=== PATIENT | female | born 2005 | race Caucasian/White ===

== ENCOUNTER 2023-09-23 13:38 | Emergency (ER) | payer OTHER ==
[2023-09-23 13:52] VITALS: BP 127/79; PULSE 77; RESP 18; TEMP 99; BMI 29.2
[2023-09-23] MEDS ORDERED: SODIUM CHLORIDE 0.9% 500 ML INFUS.BAG IV ONE (15:09)
[2023-09-23 15:47] LABS: URINE APPEARANCE CLEAR; URINE BILIRUBIN NEGATIVE (NEGATIVE); URINE COLOR YELLOW; URINE GLUCOSE (UA) NEGATIVE (NEGATIVE); URINE KETONE TRACE (NEGATIVE); URINE LEUK ESTERASE NEGATIVE (NEGATIVE); URINE NITRITE NEGATIVE (NEGATIVE); URINE PROTEIN NEGATIVE (NEGATIVE); URINE UROBILINOGEN 0.2 mg/dL (0.2-1.0)
[2023-09-23 15:48] LABS: BASO % 0.4 % (0-2.0); EOS % 1.9 % (0-4.5); HEMATOCRIT 40.9 % (32.4-45.2); HEMOGLOBIN 13.2 GM/dL (10.7-15.3); LYMPH % 32.1 % (8-40); MCH 27.8 pg (25.7-33.7); MCHC 32.4 g/dl (32.0-36.0); MEAN CELL VOLUME 85.7 fl (80-96); MEAN PLT VOLUME 8.1 fl (7.5-11.1); MONO % 7.4 % (3.8-10.2); NEUT % 58.2 % (42.8-82.8); PLATELET COUNT 303 10^3/uL (134-434); RBC 4.77 M/mm3 (3.60-5.2); RDW 12.7 % (11.6-15.6); WHITE BLOOD COUNT 7.7 K/mm3 (4.0-10.0)
[2023-09-23 16:01] LABS: CHLORIDE 107 mmol/L (98-107); SODIUM 140 mmol/L (136-145)
[2023-09-23 16:03] LABS: CALCIUM 8.7 mg/dL (8.5-10.1)
[2023-09-23 16:04] LABS: ALBUMIN 3.9 g/dl (3.4-5.0); ANION GAP 6 mmol/L (4-13); BLOOD UREA NITROGEN 6.4 mg/dL (7-18); CO2 27 mmol/L (21-32); GLUCOSE,RANDOM 80 mg/dL (74-106)
[2023-09-23 16:05] LABS: EPI CELLS 28 /uL (0-25.1); HYALINE CASTS 0 /uL (0-3.1); URINE BACTERIA 368 /uL (0-1359); URINE RBC 8 /uL (0-23.9); URINE WBC 10 /uL (0-25.8)
[2023-09-23 16:08] LABS: HCG,QUALITATIVE URINE NEGATIVE
[2023-09-23 16:08] LABS: BILIRUBIN,TOTAL 0.3 mg/dL (0.2-1); CREATININE 0.7 mg/dL (0.55-1.3); SGOT/AST 32 U/L (15-37); SGPT/ALT 38 U/L (13-61); TOT PROT 7.8 g/dl (6.4-8.2)
[2023-09-23 16:09] LABS: ALK PHOS 90 U/L (45-117)
== END 2023-09-23 20:15 | disposition home or self-care (01) ==
LOC: JER 13:38
DX: M54.50 Low back pain, unspecified (principal); R10.11 Right upper quadrant pain; R10.12 Left upper quadrant pain; Z20.822 Contact with and (suspected) exposure to COVID-19
CPT/HCPCS: 0241U-QW; 36415; 74177-TC; 80053; 81003; 84702; 84703; 85025; 87086; 93005; 93010; 99285-25; Q9967

== ENCOUNTER 2024-01-13 04:10 | Emergency (ER) | payer OTHER ==
[2024-01-13 04:20] VITALS: BMI 29.2
[2024-01-13 04:26] VITALS: TEMP 97.8
[2024-01-13 05:03] LABS: PH,URINE 6.5 (5.0-8.0); URINE APPEARANCE CLEAR; URINE BILIRUBIN NEGATIVE (NEGATIVE); URINE COLOR YELLOW; URINE GLUCOSE (UA) NEGATIVE (NEGATIVE); URINE KETONE NEGATIVE (NEGATIVE); URINE LEUK ESTERASE NEGATIVE (NEGATIVE); URINE NITRITE NEGATIVE (NEGATIVE); URINE PROTEIN NEGATIVE (NEGATIVE)
[2024-01-13] MEDS ORDERED: ACETAMINOPHEN 325 MG TABLET (FP) ONE (05:22)
[2024-01-13] MEDS: ACETAMINOPHEN 500 MG TABLET (FP) PO ONE (05:27)
[2024-01-13 05:41] LABS: HCG,QUALITATIVE URINE Positive
[2024-01-13] MEDS: SODIUM CHLORIDE 0.9% 500 ML INFUS.BAG IV ONE (06:17)
[2024-01-13 06:33] LABS: BASO % 0.4 % (0-2.0); EOS % 2.7 % (0-4.5); HEMATOCRIT 36.3 % (32.4-45.2); HEMOGLOBIN 12.5 GM/dL (10.7-15.3); MCH 28.7 pg (25.7-33.7); MCHC 34.5 g/dl (32.0-36.0); MEAN CELL VOLUME 83.2 fl (80-96); MEAN PLT VOLUME 7.8 fl (7.5-11.1); MONO % 8.5 % (3.8-10.2); NEUT % 63.4 % (42.8-82.8); PLATELET COUNT 310 10^3/uL (134-434); RBC 4.37 M/mm3 (3.60-5.2); RDW 13.1 % (11.6-15.6); WHITE BLOOD COUNT 6.5 K/mm3 (4.0-10.0)
[2024-01-13 07:05] LABS: POTASSIUM 3.7 mmol/L (3.5-5.1)
[2024-01-13 07:07] LABS: CALCIUM 8.6 mg/dL (8.5-10.1)
[2024-01-13 07:08] LABS: ALBUMIN 3.5 g/dl (3.4-5.0); BLOOD UREA NITROGEN 7.6 mg/dL (7-18)
[2024-01-13 07:11] LABS: CREATININE 0.6 mg/dL (0.55-1.3)
[2024-01-13 07:12] LABS: BILIRUBIN,TOTAL 0.4 mg/dL (0.2-1); TOT PROT 6.9 g/dl (6.4-8.2)
[2024-01-13 11:10] VITALS: BP 104/58; PULSE 83; RESP 18
== END 2024-01-13 14:24 | disposition home or self-care (01) ==
LOC: JER 04:10
DX: O26.891 Other specified pregnancy related conditions, first trimester (principal); R10.30 Lower abdominal pain, unspecified; Z3A.01 Less than 8 weeks gestation of pregnancy
CPT/HCPCS: 36415; 76817-TC; 80053; 81003; 83690; 84702; 84703; 85025; 86850; 86900; 86901; 87086; 99284-25

== ENCOUNTER 2024-01-23 11:39 | Emergency (ER) | payer OTHER ==
[2024-01-23 11:45] VITALS: TEMP 97.6; BMI 27.7
[2024-01-23] MEDS ORDERED: METOCLOPRAMIDE HCL INJECTION 10 MG/2 ML VIAL ONE (12:30)
[2024-01-23] MEDS ORDERED: ACETAMINOPHEN INJECTION 100 ML IVPB ONE (12:30)
[2024-01-23 12:34] LABS: BASO % 0.4 % (0-2.0); EOS % 0.6 % (0-4.5); HEMATOCRIT 38.6 % (32.4-45.2); HEMOGLOBIN 13.1 GM/dL (10.7-15.3); LYMPH % 21.3 % (8-40); MCH 28.6 pg (25.7-33.7); MONO % 6.7 % (3.8-10.2); PLATELET COUNT 298 10^3/uL (134-434); RDW 13.3 % (11.6-15.6); WHITE BLOOD COUNT 6.2 K/mm3 (4.0-10.0)
[2024-01-23 12:35] LABS: HCG,QUALITATIVE URINE Positive
[2024-01-23 12:38] LABS: EPI CELLS >36 /uL (0-25.1); HYALINE CASTS 7 /uL (0-3.1); URINE APPEARANCE TURBID; URINE BACTERIA 4672 /uL (0-1359); URINE BILIRUBIN 1+ (NEGATIVE); URINE COLOR DK YELLOW; URINE GLUCOSE (UA) NEGATIVE (NEGATIVE); URINE KETONE 1+ (NEGATIVE); URINE LEUK ESTERASE 1+ (NEGATIVE); URINE NITRITE NEGATIVE (NEGATIVE); URINE PROTEIN 1+ (NEGATIVE); URINE RBC 17 /uL (0-23.9); URINE WBC 100 /uL (0-25.8)
[2024-01-23 12:41] LABS: INR 1.16 (0.83-1.09); PROTHROMBIN TIME (PATIENT) 13.1 SEC (9.7-13.0)
[2024-01-23 12:44] LABS: ACTIVATED PTT 34.4 SECONDS (25.2-36.5)
[2024-01-23] MEDS: METOCLOPRAMIDE HCL INJECTION 10 MG/2 ML VIAL IVPUSH ONE (12:46)
[2024-01-23] MEDS: LACTATED RINGERS SOLUTION 1000 ML INFUS.BAG IV ONE (12:46)
[2024-01-23 12:51] LABS: POTASSIUM 4.1 mmol/L (3.5-5.1)
[2024-01-23 12:53] LABS: CALCIUM 9.3 mg/dL (8.5-10.1)
[2024-01-23 12:54] LABS: BLOOD UREA NITROGEN 7.8 mg/dL (7-18); MAGNESIUM 2.2 mg/dL (1.8-2.4)
[2024-01-23 12:57] LABS: CREATININE 0.6 mg/dL (0.55-1.3)
[2024-01-23 12:58] LABS: BILIRUBIN,TOTAL 0.6 mg/dL (0.2-1)
[2024-01-23 12:59] LABS: TOT PROT 7.9 g/dl (6.4-8.2)
[2024-01-23] MEDS: ACETAMINOPHEN 1000 MG/100 ML BAG IVPB ONE (13:05)
[2024-01-23] MEDS ORDERED: ONDANSETRON 4 MG/2 ML VIAL IVPUSH ONE (14:17)
[2024-01-23] MEDS ORDERED: ONDANSETRON 4 MG/2 ML VIAL ONE (14:26)
[2024-01-23] MEDS ORDERED: CEPHALEXIN MONOHYDRATE 500 MG CAPSULE (UD) PO ONE (14:38)
[2024-01-23 16:07] VITALS: BP 110/62; PULSE 66; RESP 18
== END 2024-01-23 16:07 | disposition home or self-care (01) ==
LOC: JER 11:39
PROC: 3E033NZ Introduction of Analgesics, Hypnotics, Sedatives into Peripheral Vein, Percutaneous Approach (ICD-10-PCS; principal; 2024-01-23)
PROC: 3E033GC Introduction of Other Therapeutic Substance into Peripheral Vein, Percutaneous Approach (ICD-10-PCS; 2024-01-23)
DX: O23.91 Unspecified genitourinary tract infection in pregnancy, first trimester (principal); O21.9 Vomiting of pregnancy, unspecified; Z3A.01 Less than 8 weeks gestation of pregnancy; Z20.822 Contact with and (suspected) exposure to COVID-19
CPT/HCPCS: 0241U-QW; 36415; 76817-TC; 80053; 81003; 83735; 84702; 84703; 85025; 85610; 85730; 87086; 93005; 93010; 99285-25; J0131

== ENCOUNTER 2024-02-02 14:28 | Emergency (ER) | payer OTHER ==
[2024-02-02 14:43] VITALS: BP 130/78; RESP 16; BMI 37.1
[2024-02-02] MEDS ORDERED: ONDANSETRON 4 MG/2 ML VIAL ONE (15:34)
[2024-02-02] MEDS: SODIUM CHLORIDE 0.9% 500 ML INFUS.BAG IV ONE (15:44)
[2024-02-02] MEDS: ONDANSETRON 4 MG/2 ML VIAL IVPUSH ONE (15:44)
[2024-02-02] MEDS ORDERED: FAMOTIDINE 20 MG/50 ML IVPB 20 MG/50 ML MG IVPB ONE (15:56)
[2024-02-02 16:04] LABS: BASO % 0.4 % (0-2.0); HEMATOCRIT 39.9 % (32.4-45.2); HEMOGLOBIN 14.1 GM/dL (10.7-15.3); LYMPH % 19.8 % (8-40); MCH 29.5 pg (25.7-33.7); MCHC 35.3 g/dl (32.0-36.0); MEAN CELL VOLUME 83.6 fl (80-96); MEAN PLT VOLUME 9.4 fl (7.5-11.1); MONO % 7.1 % (3.8-10.2); NEUT % 71.7 % (42.8-82.8); PLATELET COUNT 287 10^3/uL (134-434); RBC 4.77 M/mm3 (3.60-5.2); RDW 13.4 % (11.6-15.6); WHITE BLOOD COUNT 7.3 K/mm3 (4.0-10.0)
[2024-02-02] MEDS: FAMOTIDINE 20 MG/50 ML IVPB 20 MG/50 ML MG IVPB ONE (16:04)
[2024-02-02 16:32] LABS: POTASSIUM 4.4 mmol/L (3.5-5.1)
[2024-02-02 16:34] LABS: BLOOD UREA NITROGEN 8.5 mg/dL (7-18); CALCIUM 9.7 mg/dL (8.5-10.1)
[2024-02-02 16:38] LABS: CREATININE 0.6 mg/dL (0.55-1.3)
[2024-02-02] MEDS ORDERED: METOCLOPRAMIDE HCL INJECTION 10 MG/2 ML VIAL ONE (17:51)
[2024-02-02] MEDS: METOCLOPRAMIDE HCL INJECTION 10 MG/2 ML VIAL IVPUSH ONE (18:03)
[2024-02-02] MEDS: DEXTROSE 5%-NORMAL SALINE 1,000 ML IV ONE (18:36)
[2024-02-02 20:04] LABS: PH,URINE 6.5 (5.0-8.0); URINE APPEARANCE CLEAR; URINE BILIRUBIN NEGATIVE (NEGATIVE); URINE COLOR DK YELLOW; URINE GLUCOSE (UA) 3+ (NEGATIVE); URINE KETONE 3+ (NEGATIVE); URINE LEUK ESTERASE NEGATIVE (NEGATIVE); URINE NITRITE NEGATIVE (NEGATIVE); URINE PROTEIN NEGATIVE (NEGATIVE)
[2024-02-02 20:05] VITALS: PULSE 81; TEMP 98.3
== END 2024-02-02 23:57 | disposition home or self-care (01) ==
LOC: JER 14:28
PROC: 3E033GC Introduction of Other Therapeutic Substance into Peripheral Vein, Percutaneous Approach (ICD-10-PCS; principal; 2024-02-02)
PROC: 3E033GC Introduction of Other Therapeutic Substance into Peripheral Vein, Percutaneous Approach (ICD-10-PCS; 2024-02-02)
PROC: 3E033GC Introduction of Other Therapeutic Substance into Peripheral Vein, Percutaneous Approach (ICD-10-PCS; 2024-02-02)
PROC: 3E0337Z Introduction of Electrolytic and Water Balance Substance into Peripheral Vein, Percutaneous Approach (ICD-10-PCS; 2024-02-02)
DX: O21.1 Hyperemesis gravidarum with metabolic disturbance (principal); O99.891 Other specified diseases and conditions complicating pregnancy; R19.7 Diarrhea, unspecified; Z3A.01 Less than 8 weeks gestation of pregnancy
CPT/HCPCS: 36415; 76815; 80053; 81003; 83690; 84702; 85025; 86850; 86900; 86901; 87086; 99284-25

== ENCOUNTER 2024-02-15 17:41 | Emergency (ER) | payer OTHER ==
[2024-02-15 17:45] VITALS: RESP 18; BMI 26.6
[2024-02-15] MEDS ORDERED: FAMOTIDINE 20 MG/50 ML IVPB 20 MG/50 ML MG IVPB ONE ×2 (18:11→18:28)
[2024-02-15] MEDS ORDERED: ONDANSETRON 4 MG/2 ML VIAL ONE ×2 (18:11→18:28)
[2024-02-15] MEDS ORDERED: ACETAMINOPHEN INJECTION 100 ML IVPB ONE ×2 (18:11→18:28)
[2024-02-15] MEDS: ACETAMINOPHEN 1000 MG/100 ML BAG IVPB ONE (18:15)
[2024-02-15] MEDS: ONDANSETRON 4 MG/2 ML VIAL IVPUSH ONE (18:15)
[2024-02-15] MEDS: FAMOTIDINE 20 MG/50 ML IVPB 20 MG/50 ML MG IVPB ONE (18:15)
[2024-02-15] MEDS: LACTATED RINGERS SOLUTION 1000 ML INFUS.BAG IV ONE (18:15)
[2024-02-15 18:42] LABS: BASO % 0.5 % (0-2.0); EOS % 0.5 % (0-4.5); HEMATOCRIT 39.7 % (32.4-45.2); HEMOGLOBIN 13.6 GM/dL (10.7-15.3); MCH 28.5 pg (25.7-33.7); MCHC 34.4 g/dl (32.0-36.0); MEAN CELL VOLUME 83.1 fl (80-96); MEAN PLT VOLUME 9.7 fl (7.5-11.1); MONO % 6.9 % (3.8-10.2); NEUT % 74.1 % (42.8-82.8); PLATELET COUNT 278 10^3/uL (134-434); RBC 4.77 M/mm3 (3.60-5.2); RDW 13.4 % (11.6-15.6); WHITE BLOOD COUNT 7.5 K/mm3 (4.0-10.0)
[2024-02-15 18:47] LABS: INR 1.13 (0.83-1.09); PROTHROMBIN TIME (PATIENT) 12.9 SEC (9.7-13.0)
[2024-02-15 18:49] LABS: ACTIVATED PTT 30.7 SECONDS (25.2-36.5)
[2024-02-15 19:01] LABS: POTASSIUM 4.2 mmol/L (3.5-5.1)
[2024-02-15 19:04] LABS: ALBUMIN 3.9 g/dl (3.4-5.0); BLOOD UREA NITROGEN 6.2 mg/dL (7-18); CALCIUM 9.6 mg/dL (8.5-10.1); MAGNESIUM 2.1 mg/dL (1.8-2.4)
[2024-02-15 19:07] LABS: CREATININE 0.6 mg/dL (0.55-1.3)
[2024-02-15 19:09] LABS: BILIRUBIN,TOTAL 1.3 mg/dL (0.2-1); TOT PROT 7.8 g/dl (6.4-8.2)
[2024-02-15 22:54] LABS: URINE APPEARANCE TURBID; URINE BILIRUBIN 1+ (NEGATIVE); URINE COLOR DK YELLOW; URINE GLUCOSE (UA) NEGATIVE (NEGATIVE); URINE KETONE 4+ (NEGATIVE); URINE LEUK ESTERASE NEGATIVE (NEGATIVE); URINE NITRITE NEGATIVE (NEGATIVE); URINE PROTEIN TRACE (NEGATIVE)
[2024-02-15 23:34] VITALS: BP 100/58; PULSE 94; TEMP 98.4
[2024-02-16] MEDS ORDERED: ONDANSETRON 4 MG/2 ML VIAL ONE (00:42)
[2024-02-16] MEDS: ONDANSETRON 4 MG/2 ML VIAL IVPB ONE (00:50)
== END 2024-02-16 01:48 | disposition home or self-care (01) ==
LOC: JER 17:41
PROC: 3E033GC Introduction of Other Therapeutic Substance into Peripheral Vein, Percutaneous Approach (ICD-10-PCS; principal; 2024-02-15)
PROC: 3E033GC Introduction of Other Therapeutic Substance into Peripheral Vein, Percutaneous Approach (ICD-10-PCS; 2024-02-15)
PROC: 3E033GC Introduction of Other Therapeutic Substance into Peripheral Vein, Percutaneous Approach (ICD-10-PCS; 2024-02-15)
PROC: 3E033GC Introduction of Other Therapeutic Substance into Peripheral Vein, Percutaneous Approach (ICD-10-PCS; 2024-02-15)
DX: O21.0 Mild hyperemesis gravidarum (principal); Z3A.09 9 weeks gestation of pregnancy
CPT/HCPCS: 36415; 76705-TC; 76817-TC; 80053; 81003; 83690; 83735; 84702; 85025; 85610; 85730; 87086; 99284-25; J0131

== ENCOUNTER 2024-03-06 11:20 | Emergency (ER) | payer OTHER ==
[2024-03-06 11:30] VITALS: BMI 30.7
[2024-03-06] MEDS ORDERED: ONDANSETRON 4 MG/2 ML VIAL ONE (12:54)
[2024-03-06] MEDS: ONDANSETRON 4 MG/2 ML VIAL IVPUSH ONE (13:00)
[2024-03-06] MEDS: SODIUM CHLORIDE 1,000 ML IV STA (13:00)
[2024-03-06 13:07] LABS: BASO % 0.4 % (0-2.0); HEMATOCRIT 41.2 % (32.4-45.2); HEMOGLOBIN 14.3 GM/dL (10.7-15.3); LYMPH % 22.2 % (8-40); MCH 28.7 pg (25.7-33.7); MCHC 34.6 g/dl (32.0-36.0); MEAN PLT VOLUME 8.5 fl (7.5-11.1); MONO % 7.2 % (3.8-10.2); NEUT % 69.2 % (42.8-82.8); PLATELET COUNT 296 10^3/uL (134-434); RBC 4.97 M/mm3 (3.60-5.2); RDW 13.6 % (11.6-15.6); WHITE BLOOD COUNT 5.8 K/mm3 (4.0-10.0)
[2024-03-06 13:10] LABS: EPI CELLS 32 /uL (0-25.1); HYALINE CASTS 2 /uL (0-3.1); URINE APPEARANCE CLEAR; URINE BILIRUBIN 2+ (NEGATIVE); URINE COLOR DK YELLOW; URINE GLUCOSE (UA) NEGATIVE (NEGATIVE); URINE KETONE 4+ (NEGATIVE); URINE LEUK ESTERASE TRACE (NEGATIVE); URINE NITRITE POSITIVE (NEGATIVE); URINE PROTEIN 1+ (NEGATIVE); URINE WBC 14 /uL (0-25.8)
[2024-03-06 13:13] LABS: URINE BACTERIA 763.7 /uL (0-1359); URINE RBC 18.2 /uL (0-23.9)
[2024-03-06 13:16] LABS: INR 1.11 (0.83-1.09); PROTHROMBIN TIME (PATIENT) 12.5 SEC (9.7-13.0)
[2024-03-06 13:18] LABS: ACTIVATED PTT 31.2 SECONDS (25.2-36.5)
[2024-03-06 13:32] LABS: POTASSIUM 4.8 mmol/L (3.5-5.1)
[2024-03-06 13:34] LABS: CALCIUM 9.8 mg/dL (8.5-10.1)
[2024-03-06 13:35] LABS: ALBUMIN 3.8 g/dl (3.4-5.0); BLOOD UREA NITROGEN 5.8 mg/dL (7-18); MAGNESIUM 2.1 mg/dL (1.8-2.4)
[2024-03-06 13:37] LABS: PHOSPHOROUS 3.8 mg/dL (2.5-4.9)
[2024-03-06 13:38] LABS: CREATININE 0.6 mg/dL (0.55-1.3)
[2024-03-06 13:39] LABS: BILIRUBIN,TOTAL 0.9 mg/dL (0.2-1); TOT PROT 8.1 g/dl (6.4-8.2)
[2024-03-06] MEDS ORDERED: CEFTRIAXONE 1 GM/50 ML BAG ONE (13:44)
[2024-03-06] MEDS: CEFTRIAXONE 1 GM in DEXTROSE 5%-WATER - 100 ML IVPB ONE (13:49)
[2024-03-06 14:55] VITALS: BP 114/62; PULSE 72; RESP 19; TEMP 97.8
== END 2024-03-06 15:54 | disposition home or self-care (01) ==
LOC: JER 11:20
PROC: 3E033NZ Introduction of Analgesics, Hypnotics, Sedatives into Peripheral Vein, Percutaneous Approach (ICD-10-PCS; principal; 2024-03-06)
PROC: 3E033GC Introduction of Other Therapeutic Substance into Peripheral Vein, Percutaneous Approach (ICD-10-PCS; 2024-03-06)
PROC: 3E0337Z Introduction of Electrolytic and Water Balance Substance into Peripheral Vein, Percutaneous Approach (ICD-10-PCS; 2024-03-06)
DX: O23.11 Infections of bladder in pregnancy, first trimester (principal); N30.00 Acute cystitis without hematuria; O23.41 Unspecified infection of urinary tract in pregnancy, first trimester; O21.9 Vomiting of pregnancy, unspecified; O26.891 Other specified pregnancy related conditions, first trimester; R10.2 Pelvic and perineal pain; O99.891 Other specified diseases and conditions complicating pregnancy; R51.9 Headache, unspecified; R53.1 Weakness; R00.0 Tachycardia, unspecified; Z3A.12 12 weeks gestation of pregnancy; Z20.822 Contact with and (suspected) exposure to COVID-19
CPT/HCPCS: 0241U-QW; 36415; 76801-TC; 80053; 81003; 83735; 84100; 84702; 85025; 85610; 85730; 86850; 86900; 86901; 87086; 99284-25

== ENCOUNTER 2024-08-29 17:25 | Inpatient (IN) | payer OTHER ==
[2024-08-29 18:27] VITALS: BMI 36.8
[2024-08-29] MEDS: ELECTROLYTE-148 SOLN 1,000 ML IV SCH (18:30)
[2024-08-29 19:37] LABS: BASO % 0.2 % (0-2.0); EOS % 0.5 % (0-4.5); HEMATOCRIT 34.4 % (32.4-45.2); HEMOGLOBIN 11.3 GM/dL (10.7-15.3); LYMPH % 16.4 % (8-40); MCH 26.6 pg (25.7-33.7); MCHC 32.7 g/dl (32.0-36.0); MEAN CELL VOLUME 81.3 fl (80-96); MEAN PLT VOLUME 7.9 fl (7.5-11.1); MONO % 6.4 % (3.8-10.2); NEUT % 76.5 % (42.8-82.8); PLATELET COUNT 368 10^3/uL (134-434); RBC 4.23 M/mm3 (3.60-5.2); RDW 14.3 % (11.6-15.6); WHITE BLOOD COUNT 7.7 K/mm3 (4.0-10.0)
[2024-08-29 19:51] LABS: INR 0.93 (0.83-1.09); PROTHROMBIN TIME (PATIENT) 10.5 SEC (9.7-13.0)
[2024-08-29 19:53] LABS: ACTIVATED PTT 29.4 SECONDS (25.2-36.5)
[2024-08-29 20:08] LABS: POTASSIUM 4.1 mmol/L (3.5-5.1)
[2024-08-29 20:09] LABS: BLOOD UREA NITROGEN 7.2 mg/dL (7-18); CALCIUM 8.7 mg/dL (8.5-10.1)
[2024-08-29] MEDS: DINOPROSTONE 10 MG VAGINAL SUPPOSITORY VG STA (20:12)
[2024-08-29 20:13] LABS: CREATININE 0.4 mg/dL (0.55-1.3)
[2024-08-30] MEDS ORDERED: PROMETHAZINE HCL 25 MG/1 ML VIAL ONE (02:43)
[2024-08-30] MEDS ORDERED: BUTORPHANOL TARTRATE 1 MG/ML VIAL ONE (02:43)
[2024-08-30] MEDS: BUTORPHANOL TARTRATE 1 MG/ML VIAL IVPB ONE (02:57)
[2024-08-30] MEDS: PROMETHAZINE HCL 25 MG/1 ML VIAL IVPB ONE (02:57)
[2024-08-30] MEDS ORDERED: OXYTOCIN 20 UNITS in 0.9% NS 20 UNIT/1,000 ML INFUS.BAG IV ONE (05:13)
[2024-08-30] MEDS ORDERED: LIDOCAINE HCL 1% PRESERVATIVE FREE - 30ML VIAL ONE (05:14)
[2024-08-30] MEDS: OXYTOCIN 20 UNITS in 0.9% NS 20 UNIT/1,000 ML INFUS.BAG IV SCH (05:42)
[2024-08-30] MEDS ORDERED: BENZOCAINE 20% 57 GM BOTTLE TP PRN (05:55)
[2024-08-30] MEDS ORDERED: BENZOCAINE 28 GM HEMORRHOIDAL OINTMENT TP PRN (05:55)
[2024-08-30] MEDS ORDERED: WITCH HAZEL 50% (TUCKS) 40 PAD/JAR PAD TP PRN (05:55)
[2024-08-30] MEDS ORDERED: BISACODYL 10 MG SUPP.RECT RC PRN (05:55)
[2024-08-30] MEDS ORDERED: IBUPROFEN 600 MG TABLET (FP) PO ONE (06:23)
[2024-08-30] MEDS: IBUPROFEN 600 MG TABLET (FP) PO PRN (06:25)
[2024-08-30] MEDS: ACETAMINOPHEN 325 MG TABLET (FP) PO PRN (09:24)
[2024-08-31 07:59] LABS: BASO % 0.4 % (0-2.0); EOS % 0.6 % (0-4.5); HEMATOCRIT 31.9 % (32.4-45.2); HEMOGLOBIN 10.5 GM/dL (10.7-15.3); MCH 27.1 pg (25.7-33.7); MCHC 32.9 g/dl (32.0-36.0); MEAN CELL VOLUME 82.4 fl (80-96); MEAN PLT VOLUME 7.8 fl (7.5-11.1); MONO % 7.4 % (3.8-10.2); NEUT % 73.6 % (42.8-82.8); PLATELET COUNT 301 10^3/uL (134-434); RBC 3.88 M/mm3 (3.60-5.2); RDW 14.3 % (11.6-15.6)
[2024-08-31 21:38] VITALS: RESP 18
[2024-09-01 10:44] VITALS: BP 116/70; PULSE 85; TEMP 97.8
== END 2024-09-01 15:25 | disposition home or self-care (01) | DRG 560 ==
LOC: JDEL 17:25 → JLDR 17:41 → J3W 08-30 08:15
PROVIDERS: ADMIT Student in an Organized Health Care Education/Training Program; ATTEND Student in an Organized Health Care Education/Training Program
PROC: 3E0P7VZ Introduction of Hormone into Female Reproductive, Via Natural or Artificial Opening (ICD-10-PCS; 2024-08-29)
PROC: 10E0XZZ Delivery of Products of Conception, External Approach (ICD-10-PCS; principal; 2024-08-30)
DX: O80 Encounter for full-term uncomplicated delivery (principal); Z3A.37 37 weeks gestation of pregnancy; Z37.0 Single live birth
CPT/HCPCS: 36415; 59409; 80048; 85025; 85610; 85730; 86780; 86850; 86900; 86901